=== PATIENT | male | born 1960 | race Caucasian/White ===

== ENCOUNTER 2018-04-16 17:50 | Emergency (ER) | payer BC, OTHER ==
[2018-04-16 18:18] LABS: Absolute Lymphocytes (CBC) 0.9 K/uL (0.7-4.9); Absolute Monocytes 0.8 K/uL (0.1-1.3); Absolute Neutrophil 7.7 K/uL (1.8-8.0); Basophils % 0.4 % (0-1.3); Eosinophils % 2.6 % (0-4.4); Hematocrit 42.2 % (39.6-49.0); Lymphocytes % 9.1 % (15.3-44.8); MCH 27.7 pg (27.0-35.0); MCV 86.3 fL (80-100); MPV 7.7 fL (7.6-11.3); RBC Red Blood Cell Count 4.89 M/uL (4.33-5.43)
[2018-04-16 18:32] LABS: Potassium 3.7 mmol/L (3.5-5.1)
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
[2018-04-16] MEDS ORDERED: MORPHINE 4 MG/ML SYR ONE (19:55)
[2018-04-16 20:37] LABS: Urine Blood 1+ (NEG); Urine Glucose NEGATIVE (NEG); Urine Protein 1+ (NEG); Urine Specific Gravity >1.030 (1.005-1.030); Urine pH 5.5 (5.0-7.0)
[2018-04-16 20:38] VITALS: TEMP 98
[2018-04-16 20:39] VITALS: BP 130/78; O2SAT 99
== END 2018-04-16 20:30 | disposition short-term general hospital (02) ==
LOC: ER 17:50
DX: S32.810A Multiple fractures of pelvis with stable disruption of pelvic ring, initial encounter for closed fracture (principal); V93.39XA Fall on board unspecified watercraft, initial encounter; Y93.89 Activity, other specified; Y92.9 Unspecified place or not applicable; Z88.0 Allergy status to penicillin
CPT/HCPCS: 36415; 71045; 72170; 74177; 80048; 81003; 85025; 86850; 86900; 86901; 99285; Q9967

== ENCOUNTER 2018-04-20 06:32 | Emergency (ER) | payer BC ==
--- OUTSIDE RECORDS SUMMARY | 2018-04-20 06:34 | XMS REPORT | Clinical Summary ---
:1960 Author Organization [facility] Address [address] [place] [address] Care Team Providers Name Role Phone Asked, No Pcp Primary Care Provider Unavailable Allergies Active Allergy Reactions Severity Noted Date Comments Penicillin G 10/22/2016 Current Medications Prescription Sig. Disp. Refills Start Date End Date Status meloxicam (MOBIC) 15 Take 1 tablet 30 tablet 2 10/22/2016 10/22/2017 mg tablet (15 mg total) by mouth daily. meloxicam (MOBIC) 15 Take 1 tablet 30 tablet 2 11/21/2016 11/21/2017 mg tablet (15 mg total) by mouth daily. Start the Mobic AFTER you finish the Medrol Dose [facility], or Other Ordered Dose Route Frequency Start Date End Date Status Facility Administered Medication methylPREDNISolone acetate 40 mg IM once 12/12/2016 Active (DEPO-MEDROL) injection 40 mgIndications: Shoulder impingement, right Active Problems Problem Noted Date Shoulder strain 11/21/2016 Social History Tobacco Use Types Packs/Day Years Used Date Never Smoker Smokeless Tobacco: Never Used Sex Assigned at Date Recorded Not on file Last Filed Vital Signs Not on file Plan of Treatment Health Maintenance Due Date Last Done Comments COLON CANCER SCREENING 01/06/2008 SHINGRIX VACCINE (#1) 01/06/2008 ZOSTER VACCINE 2018 INFLUENZA VACCINE 05/20/2018 Results Not on fileafter 04/19/2017 Insurance Payer Benefit Plan / Group Subscriber ID Type Phone Address [facility] CHOICE/CHOICE + xxxxxxxxx HMO/PPO Home: [place] PATRICIA y [phone] [id number]
[2018-04-20] MEDS ORDERED: MORPHINE 4 MG/ML SYR ONE (07:23)
[2018-04-20] MEDS ORDERED: KETOROLAC 30 MG/ML INJ ONE (07:24)
[2018-04-20] MEDS ORDERED: ONDANSETRON 4 MG/2 ML VIAL ONE (07:24)
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
[2018-04-20 08:37] VITALS: TEMP 98
[2018-04-20 08:38] VITALS: O2SAT 96
[2018-04-20 08:39] VITALS: BP 109/88
[2018-04-20 09:39] LABS: Urine Blood TRACE (NEG); Urine Glucose NEGATIVE (NEG); Urine Protein 1+ (NEG)
== END 2018-04-20 08:33 | disposition home or self-care (01) ==
LOC: ER 06:32
DX: R33.9 Retention of urine, unspecified (principal); Z88.0 Allergy status to penicillin
CPT/HCPCS: 51702; 81003; 96374; 96375; 99284; J2405

== ENCOUNTER 2018-04-22 11:17 | Emergency (ER) | payer BC ==
--- OUTSIDE RECORDS SUMMARY | 2018-04-22 11:19 | XMS REPORT | Clinical Summary ---
:1960 Author Organization [facility] Address [address] [place] [address] Care Team Providers Name Role Phone Asked, [...] INFLUENZA VACCINE 05/20/2018 Results Not on fileafter 04/21/2017 Insurance Payer Benefit Plan / Group Subscriber ID Type Phone Address [facility] CHOICE/CHOICE + xxxxxxxxx HMO/PPO Home: [place] PATRICIA y [id number] [id number]
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
[2018-04-22] MEDS ORDERED: FENTANYL CITR 100 MCG/2 ML ONE (11:54)
[2018-04-22] MEDS ORDERED: NA CHLORIDE 0.9% 1,000 ML ONE ×2 (11:54→13:19)
[2018-04-22 12:00] LABS: Absolute Lymphocytes (CBC) 0.6 K/uL (0.7-4.9); Absolute Monocytes 0.5 K/uL (0.1-1.3); Basophils % 0.7 % (0-1.3); Eosinophils % 3.2 % (0-4.4); Hematocrit 37.8 % (39.6-49.0); Lymphocytes % 11.5 % (15.3-44.8); MCH 28.7 pg (27.0-35.0); MCV 84.9 fL (80-100); MPV 7.4 fL (7.6-11.3); Monocytes % 9.5 % (3.3-12.3); RBC Red Blood Cell Count 4.46 M/uL (4.33-5.43)
[2018-04-22 12:06] LABS: Potassium 4.2 mmol/L (3.5-5.1)
--- NOTE | 2018-04-22 14:28 | ER ---
Nurse's Notes [facility] Name: Jose Pennington Age: 58 yrs Sex: Male : 1960 Arrival Date: 04/22/2018 Time: 11:20 Bed 14 Private MD: None, None Diagnosis: Volume depletion;Encounter for fitting and adjustment of non-vascular catheter-ramey Presentation: 04/22 11:22 Presenting complaint: Patient states: Needs catheter removed. Ramey was placed here sv about 48 hours ago. Transition of care: patient was not received from another setting of care. Onset of symptoms was April 20, 2018. Care prior to arrival: None. 11:22 Method Of Arrival: Wheelchair sv 11:22 Acuity: CLEO 4 sv 11:43 Risk Assessment: Do you want to hurt yourself or someone else? Patient reports no ph desire to harm self or others. Initial Sepsis Screen: Does the patient meet any 2 criteria? No. Patient's initial sepsis screen is negative. Does the patient have a suspected source of infection? No. Patient's initial sepsis screen is negative. Historical: - Allergies: 11:23 PENICILLINS; sv - PMHx: 11:23 Cholelithiasis; sv - PSHx: 11:23 right shoulder; right inguinal hernia repair; sv - Immunization history:: Adult Immunizations up to date. - Social history:: Smoking status: Patient/guardian denies using tobacco. - Ebola Screening: : No symptoms or risks identified at this time. Screenin:43 Abuse screen: Denies threats or abuse. Denies injuries from another. Nutritional ph screening: No deficits noted. Tuberculosis screening: No symptoms or risk factors identified. Fall Risk None identified. Assessment: 12:00 General: Appears in no apparent distress. comfortable, slender, well groomed, Behavior ph is calm, cooperative, appropriate for age, Denies fever, feeling ill. Pain: Complains of pain in left gluteus paulette Pain currently is 6 out of 10 on a pain scale. Neuro: Level of Consciousness is awake, alert, obeys commands, Oriented to person, place, time, situation. Cardiovascular: Capillary refill < 3 seconds Patient's skin is warm and dry. Respiratory: Airway is patent Respiratory effort is even, unlabored, Respiratory pattern is regular, symmetrical. GI: No signs and/or symptoms were reported involving the gastrointestinal system. : Ramey in place to gravity drainage Urine is clear, approx 250 mL noted in drainage bag, pt reports decreased urination since last night. Derm: Skin is intact, is healthy with good turgor, Skin is pink, warm \T\ dry. Musculoskeletal: Circulation, motion, and sensation intact. Range of motion: intact in all extremities. 13:00 Reassessment: Patient appears in no apparent distress at this time. No changes from previously documented assessment. Patient and/or family updated on plan of care and expected duration. Pain level reassessed. Patient is alert, oriented x 3, equal unlabored respirations, skin warm/dry/pink. 13:57 Reassessment: Patient appears in no apparent distress at this time. Patient and/or ph family updated on plan of care and expected duration. Pain level reassessed. Patient is alert, oriented x 3, equal unlabored respirations, skin warm/dry/pink. Pt assisted to restroom for BM, now lying in bed w/ head elevated, c/o pain in L hip/buttocks r/t recent injury, ERP notified and additional pain medication administered, Ramey bag emptied, 325 mL output noted. Vital Signs: 11:23 BP 110 / 74; Pulse 77; Resp 18; Pulse Ox 95% ; Weight 99.79 kg; Height 6 ft. 2 in. sv (187.96 cm); 12:32 BP 121 / 72; Pulse 65; Resp 18; Pulse Ox 98% on R/A; Pain 4/10; ph 13:56 BP 111 / 64; Pulse 48; Resp 18; Pulse Ox 98% on R/A; ph 15:00 BP 115 / 76; Pulse 52; Resp 18; Temp 98.0; Pulse Ox 99% on R/A; ph 11:23 Body Mass Index 28.25 (99.79 kg, 187.96 cm) sv ED Course: 11:20 Patient arrived in ED. sb2 11:21 None, None is Private Physician. sb2 11:23 Triage completed. sv 11:23 Arm band placed on right wrist. sv 11:26 Jessica Amador, ANIL is Primary Nurse. ph 11:27 Oliva Jacobson FNP-C [facility]. snw 11:27 Eulogio Lu MD is Attending Physician. snw 12:03 Initial lab(s) drawn, by ED staff, sent to lab. Inserted saline lock: 20 gauge in right ph antecubital area, using aseptic technique. Blood collected. 12:04 Patient has correct armband on for positive identification. Bed in low position. Call ph light in reach. Side rails up X 1. Pulse ox on. NIBP on. Warm blanket given. 12:33 No provider procedures requiring assistance completed. ph 15:14 IV discontinued, intact, bleeding controlled, No redness/swelling at site. Pressure ph dressing applied. Administered Medications: 11:59 Drug: NS 0.9% 1000 ml Route: IV; Rate: 1 bolus; Site: right antecubital; ph 11:59 Drug: fentaNYL (PF) 50 mcg Route: IVP; Site: right antecubital; ph 13:55 Drug: NS 0.9% 1000 ml Route: IV; Rate: 1 bolus; Site: right antecubital; ph 13:55 Drug: fentaNYL (PF) 50 mcg Route: IVP; Site: right antecubital; ph Outcome: 14:27 Discharge ordered by MD. willoughby 15:14 Patient left the ED. ph 15:14 Discharged to home via wheelchair, with family. ph 15:14 Condition: good 15:14 Discharge instructions given to patient, family, Instructed on discharge instructions, follow up and referral plans. catheter care Demonstrated understanding of instructions, follow-up care, catheter care Signatures: Bella Rosales, RN RN Oliva Jacobson, BARIATRIC COORDINATOR-C BARIATRIC COORDINATOR-Csnw Jessica Amador RN RN Missy Caldera sb2 Corrections: (The following items were deleted from the chart) 13:57 12:32 BP 121 / 72; Pulse 71bpm; Resp 18bpm; Pulse Ox 98% RA; Pain 4/10; ph ph
--- NOTE | 2018-04-22 14:28 | EDPHYS ---
Physician Documentation [facility] Name: Jose Pennington Age: 58 yrs Sex: Male : 1960 Arrival Date: 04/22/2018 Time: 11:20 Bed 14 Private MD: None, None ED Physician Eulogio Lu HPI: 04/22 11:45 This 58 yrs old Male presents to ER via Wheelchair with complaints of snw Catheter Removal. 11:45 Onset: The symptoms/episode began/occurred 48 hour(s) ago, here to have ramey removed. snw Associated signs and symptoms: Pertinent positives: requests cath removal s/p insertion for urinary retention. The patient has not experienced similar symptoms in the past. transferred to [place] and released with pain medications. Pt here 48h ago for ramey placement 2nd to urinary retention. Historical: - Allergies: 11:23 PENICILLINS; sv - PMHx: 11:23 Cholelithiasis; sv - PSHx: 11:23 right shoulder; right inguinal hernia repair; sv - Immunization history:: Adult Immunizations up to date. - Social history:: Smoking status: Patient/guardian denies using tobacco. - Ebola Screening: : No symptoms or risks identified at this time. ROS: 11:42 Constitutional: Negative for fever, chills, and weight loss, Eyes: Negative for injury, snw pain, redness, and discharge, ENT: Negative for injury, pain, and discharge, Neck: Negative for injury, pain, and swelling, Cardiovascular: Negative for chest pain, palpitations, and edema, Respiratory: Negative for shortness of breath, cough, wheezing, and pleuritic chest pain, Abdomen/GI: Negative for abdominal pain, nausea, vomiting, diarrhea, and constipation, Back: Negative for injury and pain, : Negative for bleeding, discharge, and swelling, + request for catheter removal Skin: Negative for injury, rash, and discoloration, Neuro: Negative for headache, weakness, numbness, tingling, and seizure, Psych: Negative for depression, anxiety, suicide ideation, homicidal ideation, and hallucinations. 11:42 MS/extremity: Positive for injury or acute deformity, recent pelvic fracture. Exam: 11:40 Constitutional: This is a well developed, well nourished patient who is awake, alert, snw and in no acute distress. Head/Face: Normocephalic, atraumatic. Eyes: Pupils equal round and reactive to light, extra-ocular motions intact. Lids and lashes normal. Conjunctiva and sclera are non-icteric and not injected. Cornea within normal limits. Periorbital areas with no swelling, redness, or edema. ENT: Nares patent. No nasal discharge, no septal abnormalities noted. Tympanic membranes are normal and external auditory canals are clear. Oropharynx with no redness, swelling, or masses, exudates, or evidence of obstruction, uvula midline. Mucous membranes moist. Neck: Trachea midline, no thyromegaly or masses palpated, and no cervical lymphadenopathy. Supple, full range of motion without nuchal rigidity, or vertebral point tenderness. No Meningismus. Chest/axilla: Normal chest wall appearance and motion. Nontender with no deformity. No lesions are appreciated. Cardiovascular: Regular rate and rhythm with a normal S1 and S2. No gallops, murmurs, or rubs. Normal PMI, no JVD. No pulse deficits. Respiratory: Lungs have equal breath sounds bilaterally, clear to auscultation and percussion. No rales, rhonchi or wheezes noted. No increased work of breathing, no retractions or nasal flaring. Abdomen/GI: Soft, non-tender, with normal bowel sounds. No distension or tympany. No guarding or rebound. No evidence of tenderness throughout. Back: No spinal tenderness. No costovertebral tenderness. Full range of motion. Skin: Warm, dry with normal turgor. Normal color with no rashes, no lesions, and no evidence of cellulitis. MS/ Extremity: Pulses equal, no cyanosis. Neurovascular intact. Full, normal range of motion. + pelvic fractures, tenderness with position change, taking meds at home but no relief at night Neuro: Awake and alert, GCS 15, oriented to person, place, time, and situation. Cranial nerves II-XII grossly intact. Motor strength 5/5 in all extremities. Sensory grossly intact. Cerebellar exam normal. Normal gait. Psych: Awake, alert, with orientation to person, place and time. Behavior, mood, and affect are within normal limits. Vital Signs: 11:23 BP 110 / 74; Pulse 77; Resp 18; Pulse Ox 95% ; Weight 99.79 kg; Height 6 ft. 2 in. sv (187.96 cm); 12:32 BP 121 / 72; Pulse 65; Resp 18; Pulse Ox 98% on R/A; Pain 4/10; ph 13:56 BP 111 / 64; Pulse 48; Resp 18; Pulse Ox 98% on R/A; ph 15:00 BP 115 / 76; Pulse 52; Resp 18; Temp 98.0; Pulse Ox 99% on R/A; ph 11:23 Body Mass Index 28.25 (99.79 kg, 187.96 cm) sv MDM: 11:28 Patient medically screened. snw 14:30 Data reviewed: vital signs, nurses notes. Data interpreted: Pulse oximetry: on room air snw is 98 %. Interpretation: normal. Counseling: I had a detailed discussion with the patient and/or guardian regarding: the historical points, exam findings, and any diagnostic results supporting the discharge/admit diagnosis, the need for outpatient follow up, to return to the emergency department if symptoms worsen or persist or if there are any questions or concerns that arise at home. Awaiting: pt rec'ing 2nd L IVF for dark urine, low output. Request ramey placed 48 hours ago for retention s/p pelvic fx be removed. Discussed with continued pain medications the ramey would have to be replaced should the pt not be able to void. Recommend an additional 2 days for ramey re-evaluation. Pt states he had clear output yesterday but minimal and dark urine today. . 04/22 11:39 Order name: CBC with Diff; Complete Time: 12:12 snw 04/22 11:39 Order name: Chem 7; Complete Time: 12:12 snw 04/22 11:39 Order name: Bladder Scanner; Complete Time: 11:49 snw Administered Medications: 11:59 Drug: NS 0.9% 1000 ml Route: IV; Rate: 1 bolus; Site: right antecubital; ph 11:59 Drug: fentaNYL (PF) 50 mcg Route: IVP; Site: right antecubital; ph 13:55 Drug: NS 0.9% 1000 ml Route: IV; Rate: 1 bolus; Site: right antecubital; ph 13:55 Drug: fentaNYL (PF) 50 mcg Route: IVP; Site: right antecubital; ph Disposition: 17:15 Co-signature as Attending Physician, Eulogio Lu MD. rn Disposition: 04/22/18 14:27 Discharged to Home. Impression: Volume depletion, Encounter for fitting and adjustment of non-vascular catheter - ramey. - Condition is Stable. - Discharge Instructions: Dehydration, Adult, Ramey Catheter Care, Adult, Urinary Retention, Acute, Male, Pelvic Pain, Male, Rehydration, Adult. - Work release form, Medication Reconciliation Form, Thank You Letter, Antibiotic Education, Prescription Opioid Use form. - Follow up: Private Physician; When: 48 Hours; Reason: Recheck today's complaints, Continuance of care, Re-evaluation by your physician. Signatures: Dispatcher [employer] EDBella Santoyo RN RN Oliva Gallego, STAMPING MILL TENDER-C STAMPING MILL TENDER-Csnw Eulogio Lu MD MD rn Hall, Patricia, RN RN ph Corrections: (The following items were deleted from the chart) 15:14 14:27 04/22/2018 14:27 Discharged to Home. Impression: Volume depletion; Encounter for ph fitting and adjustment of non-vascular catheter - ramey. Condition is Stable. Forms are Medication Reconciliation Form, Thank You Letter, Antibiotic Education, Prescription Opioid Use. Follow up: Private Physician; When: 48 Hours; Reason: Recheck today's complaints, Continuance of care, Re-evaluation by your physician. snw
[2018-04-22 15:19] VITALS: O2SAT 98
[2018-04-22 15:20] VITALS: BP 111/64
== END 2018-04-22 15:14 | disposition home or self-care (01) ==
LOC: ER 11:17
DX: E86.9 Volume depletion, unspecified (principal); Z46.6 Encounter for fitting and adjustment of urinary device; Z88.0 Allergy status to penicillin
CPT/HCPCS: 36415; 80048; 85025; 96374; 99284; J3010; J7030

== ENCOUNTER 2018-04-24 08:53 | Emergency (ER) | payer BC ==
--- OUTSIDE RECORDS SUMMARY | 2018-04-24 08:56 | XMS REPORT | Clinical Summary ---
:1960 Author Organization [facility] Address [address] [place] [address] Care Team Providers Name Role Phone Asked, [...] INFLUENZA VACCINE 05/20/2018 Results Not on fileafter 04/23/2017 Insurance Payer Benefit Plan / Group Subscriber ID Type Phone Address [facility] CHOICE/CHOICE + xxxxxxxxx HMO/PPO Home: C[place]ri[place] PATRICIA y [id number] [id number]
--- OUTSIDE RECORDS SUMMARY | 2018-04-24 08:57 | XMS REPORT | Continuity of Care Document ---
:1960 Author Organization Interface Problems Problem Status Onset Classification Date Comments Source Date Reported ACUTE PELVIC FX Active [address] PELVIC FX Active [address] FRACTURE OF Active [facility] UNSP PARTS OF [facility] LUMBOSACRAL SP Center Medications Medication Details Route Status Patient Ordering Order Source Instructions Provider Date naproxen 500 mg 500 mg=1 tab, Active 04/19[facility] [place] oral tablet PO, Q12H, PRN 2018 Medical Pain Score 4-6, Center # 40 tab, 0 Refill(s), Pharmacy: [facility] gabapentin 300 300 mg=1 cap, Active 04/19[facility] [place] MG Oral Capsule PO, Q8H, # 60 2018 Medical cap, 0 Center Refill(s), Pharmacy: [facility] Docusate Sodium 100 mg=1 cap, Active 04/19[facility] [place] 100 MG Oral PO, BID, # 30 2018 Medical Capsule cap, 0 Center Refill(s), Pharmacy: [facility] acetaminophen 1,000 mg=2 tab, Active 04/19[facility] [place] 500 mg oral PO, Q6H, # 50 2018 Medical tablet tab, 0 Center Refill(s), Pharmacy: [facility] 0.4 ML 40 mg, SUB-Q, Active 04/19[facility] Enoxaparin Daily, # 42 syr, 2018 Medical sodium 100 0 Refill(s) Center MG/ML Prefilled Syringe [Lovenox] 0.4 ML 40 mg, SUB-Q, Inactive 04/19[facility] Enoxaparin Daily, # 21 syr, 2018 Medical sodium 100 0 Refill(s) Center MG/ML Prefilled Syringe [Lovenox] acetaminophen 1,000 mg=2 tab, Inactive 04/19[facility] [place] 500 mg oral PO, Q6H, # 40 2018 Medical tablet tab, 0 Refill(s) Center tramadol 50 mg=1 tab, PO, Active 04/19[facility] [place] hydrochloride Q6H, # 50 tab, 0 2018 Medical 50 MG Oral Refill(s) Center Tablet naproxen 500 mg 500 mg=1 tab, Inactive [facility] oral tablet PO, Q12H, PRN 2018 Medical Pain Score 4-6, Center # 40 tab, 0 Refill(s) gabapentin 300 300 mg=1 cap, Inactive [place] MG Oral Capsule PO, Q8H, # 60 2018 Medical cap, 0 Refill(s) Center Docusate Sodium 100 mg=1 cap, Inactive [place] 100 MG Oral PO, BID, # 30 2018 Medical Capsule cap, 0 Refill(s) Center Naproxen 500 mg, 1 tab, Inactive [facility] Route: PO, Drug 2018 Medical form: TAB, Q12H, Center Dosing Weight 104.545, kg, Start date: 04/19/18 9:00:00 CDT, Duration: 30 day, Stop date: 05/18/18 21:00:00 CDTNotes: (Same as: Naprosyn) Take with food. gabapentin 300 mg, 1 cap, Inactive [facility] Route: PO, Drug 2017 Medical form: CAP, Q8H, Center Dosing Weight 104.545, kg, Start date: 04/19/18 8:00:00 CDT, Duration: 30 day, Stop date: 05/19/18 0:00:00 CDTNotes: (Same as: Neurontin) Atropine 1 tab, Route: No Longer [facility] Sulfate 0.025 PO, Drug Form: Active 2018 Medical MG / TAB, Dosing Center Diphenoxylate Weight 104.545, Hydrochloride kg, QID, PRN 2.5 MG Oral Loose Stools, Tablet Start date: [Lomotil] 04/18/18 10:38:00 CDT, Duration: 30 day, Stop date: 05/18/18 10:37:00 CDTNotes: (Same As: Lomotil) MAX Adult dose=8 tabs/day Simethicone 80 mg, 1 tab, No Longer [facility] Route: CHEW, Active 2018 Medical Drug form: Center CHEWTAB, TID, Dosing Weight 104.545, kg, PRN Gas, Start date: 04/17/18 23:32:00 CDT, Duration: 30 day, Stop date: 05/17/18 23:31:00 CDTNotes: (Same as: Mylicon) sennosides, LONG-TERM 8.6 mg, 1 tab, No Longer [place] [...] Miralax 17 gm, 1 pkt, No Longer [place] Route: PO, Drug Active 2017 Medical form: PWDR, Center Daily, Dosing Weight 104.545, kg, Start date: 04/17/18 9:00:00 CDT, Duration: 30 day, Stop date: 05/16/18 9:00:00 CDTNotes: Dissolve in 8 oz of water or juice. (Same as: Miralax) celecoxib 200 mg, 1 cap, No Longer [place] Route: PO, Drug Active 2017 Medical form: CAP, Q12H, Center Dosing Weight 104.545, kg, For patients LESS than 75 years old. Hold in all patients if CrCl Notes: NSAID. Please check indication. Not for seizure. (Same As: CeleBREX) Acetaminophen 1,000 mg, 2 tab, No Longer [place] Route: PO, Drug Active 2017 Medical form: TAB, Q6H, Center Dosing Weight 104.545, kg, Start date: 04/17/18 6:00:00 CDT, Duration: 30 day, Stop date: 05/17/18 0:00:00 CDTNotes: Max acetaminophen 4000 mg/day (4 gm/day). (Same as: Tylenol Extra Strength) Hydromorphone 1 mg, 0.5 mL, Inactive [place] Route: IVP, Drug 2017 Medical form: INJ, ONCE, Center Dosing Weight 104.545, kg, Priority: STAT, Start date: 04/17/18 5:16:00 CDT, Stop date: 04/17/18 5:16:00 CDTNotes: Same as Dilaudid Lidocaine 1 patch, Route: No Longer [place] Hydrochloride TOP, Q24H, Drug Active 2017 Medical [...] Enoxaparin 30 mg, 0.3 mL, No Longer [place] Route: SUB-Q, Active 2017 Medical Drug form: INJ, Center [id number], Dosing Weight 104.545, kg, Start date: 04/17/18 4:00:00 CDT, Duration: 30 day, Stop date: 05/16/18 16:00:00 CDTNotes: (Same as: Lovenox) Hydromorphone 1 mg, Route: Inactive [facility] IVP, ONCE, 2018 Medical Dosing Weight Center 104.545, kg, Priority: STAT, Start date: 04/17/18 3:06:00 CDT, Stop date: 04/17/18 3:06:00 CDT pregabalin 100 mg, 1 cap, No Longer [place] Route: PO, Drug Active 2017 Medical form: CAP, Q8H, Center Dosing Weight 104.545, kg, Priority: NOW, Start date: 04/17/18 3:04:00 CDT, Duration: 48 hr, Stop date: 04/19/18 0:00:00 CDTNotes: (Same as: Lyrica) Ketorolac 30 mg, 1 mL, Inactive [facility] Route: IVP, Drug 2017 Medical form: INJ, [...] Tramadol 100 mg, 2 tab, No Longer [place] Route: PO, Drug Active 2017 Medical form: TAB, Q6H, Center Dosing Weight 104.545, kg, Priority: NOW, Start date: 04/17/18 3:04:00 CDT, Duration: 30 day, Stop date: 05/17/18 0:00:00 CDTNotes: Not to exceed 400mg/day. (Same As: Ultram) Nicardipine 20 mg, 200 mL, Inactive [facility] Rate: Titrate, 2018 Medical Start Dose: 5 Center mg/hr, Titration: 2.5 mg/hr every 15 minutes, Goal(s): SBP Notes: Same as: Cardene Concentration: (0.1 mg/ 1 ml) Hydromorphone 1 mg, 0.5 mL, Inactive [place] Route: IVP, Drug 2017 Medical form: INJ, ONCE, Center Dosing Weight 104.545, kg, Priority: STAT, Start date: 04/17/18 0:23:00 CDT, Stop date: 04/17/18 0:23:00 CDTNotes: Same as Dilaudid Iohexol 100 mL, Route: No Longer [place] IVP, Drug Form: Active 2018 Medical SOLN, Dosing Center Weight 104.545, kg, ONCALL, STAT, Start date: 04/17/18 0:07:00 CDT, Duration: 1 doses or times, Stop date: 04/18/18 0:00:00 CDT, Dose=2.2ml/kg, Max drcz=597ol -- "To be infused by Radiology Staff ONLY"Notes: (same as:Omnipaque 350). WASTE: F/P - Black; E - [employer]ash [employer] Hydromorphone 1 mg, 0.5 mL, No Longer [place] Route: IVP, Drug Active 2017 Medical form: INJ, ONCE, Center Dosing Weight 104.545, kg, Priority: STAT, Start date: 04/16/18 23:47:00 CDT, Stop date: 04/16/18 23:47:00 CDTNotes: Same as Dilaudid Morphine 4 mg, 1 mL, Inactive [facility] Route: IVP, Drug 2017 Medical form: SOLN, Center ONCE, Dosing Weight 104.545, kg, Start date: 04/16/18 22:52:00 CDT, Stop date: 04/16/18 22:52:00 CDTNotes: (Same as:MORPhine Sulfate) Zofran 4 mg, 2 mL, Inactive [facility] Route: IVP, Drug 2017 Medical form: INJ, ONCE, Center Dosing Weight 104.545, kg, Start date: 04/16/18 22:00:00 CDT, Stop date: 04/16/18 22:00:00 CDTNotes: (Same as: Zofran) MEDICATION WASTE Product Size: 4 mg Product Wasted: _0__ mg Morphine 4 mg, 1 mL, Inactive [facility] Route: IVP, Drug 2017 Medical form: SOLN, Center ONCE, Dosing Weight 104.545, kg, Start date: 04/16/18 22:00:00 CDT, Stop date: 04/16/18 22:00:00 CDTNotes: (Same as:MORPhine Sulfate) Saline Flush 10 mL, Route: No Longer [facility] 0.9% IVP, Drug Form: Active 2018 Medical INJ, Dosing Center Weight 104.545, kg, PRN, PRN Line Flush, Start date: 04/16/18 21:40:00 CDT, Duration: 30 day, Stop date: 05/16/18 21:39:00 CDTNotes: Same as: BD Posiflush Sterile Allergies, Adverse Reactions, Alerts Substance Category Reaction Severity Reaction Status Date Comments Source type Reported penicillins Assertion Drug Active [facility] Immunizations Immunization Date Given Site Status Last Updated Comments Source Results Order Name Results Value Reference Date Interpretation Comments Source Range Pelvis 3 Pelvis 3 EXAM: XR PELVIS 3 VIEWS 04/18 - [facility] views DX views - [facility] DATE: 04/18/2018 1:30 PM CDT Read by: [...] ELECTROLYTE AGAP 14.8 meq/L 10.0 - 04/18 [facility] 20.0 [facility] ELECTROLYTE eGFR 61 04/18 Result Comment: The eGFR is calculated using the CKD-EPI formula. In most young, healthy individuals the eGFR will be >90 mL/ min/1.73m2. The eGFR declines with age. An eGFR of 60-89 may be normal in [facility] mL/min/1.7 some populations, particularly the elderly, for whom the CKD-EPI formula has not been extensively validated. Use of the eGFR is not recommended in the following populations: [address] Individuals with unstable creatinine concentrations, including [...] Lvl 74 mg/dL 70 - 99 04/[address] ELECTROLYTE BUN 18 mg/dL 7 - 22 04/[address] ELECTROLYTE Chloride Lvl 104 meq/L 95 - 109 04/[address] ELECTROLYTE CO2 26 meq/L 24 - 32 04/[address] ELECTROLYTE Potassium Lvl 3.8 meq/L 3.5 - 5.1 04/[address] ELECTROLYTE Sodium Lvl 141 meq/L 135 - 145 04/[address] ELECTROLYTE Creatinine 1.27 mg/dL 0.50 - 04/18 [facility] Lvl 1.40 [facility] ELECTROLYTE Calcium Lvl 8.6 mg/dL 8.5 - 10.5 04/[address] HEMATOLOGY Platelet 178 K/CMM 133 - 450 04/[address] HEMATOLOGY MPV 7.6 fL 7.4 - 10.4 04/[address] HEMATOLOGY RDW 16.3 % 11.5 - 04/18 [facility] 14.5 [facility] HEMATOLOGY WBC 9.5 K/CMM 3.7 - 10.4 04/[address] HEMATOLOGY Hct 40.9 % 42.0 - 04/18 [facility] 54.0 /2017 [facility] HEMATOLOGY Hgb 13.4 g/dL 14.0 - 04/18 18.0 [facility] HEMATOLOGY RBC 4.71 M/CMM 4.70 - 04/18 6.10 [facility] HEMATOLOGY MCH 28.4 pg 27.0 - 04/18 [facility] 31.0 [facility] HEMATOLOGY MCV 86.9 fL 80.0 - 04/18 94.0 [facility] HEMATOLOGY MCHC 32.7 g/dL 32.0 - 04/18 [facility] 36.0 [facility] HEMATOLOGY Monocytes 11.9 % 2.0 - 12.0 04/18 2017 [facility] HEMATOLOGY Eosinophils 2.9 % 0.0 - 4.0 04/18 2017 [facility] HEMATOLOGY Segs-Bands # 6.9 K/CMM 1.5 - 8.1 04/18 2017 [facility] HEMATOLOGY Basophils 0.3 % 0.0 - 1.0 04/18 2017 [facility] HEMATOLOGY Segs 72.8 % 45.0 - 04/18 [facility] 75.0 [facility] HEMATOLOGY Lymphocytes 12.1 % 20.0 - 04/18 [facility] 40.0 [facility] HEMATOLOGY Lymphocytes # 1.2 K/CMM 1.0 - 5.5 04/[address] HEMATOLOGY Monocytes # 1.1 K/CMM 0.0 - 0.8 04/[address] HEMATOLOGY Eosinophils # 0.3 K/CMM 0.0 - 0.5 04/[address] DRUG SCREEN UDS Note See Note 04/17 [facility] (04/16/18 11:39 PM) [place] DRUG SCREEN U Phencyc Scr Negative Negative 04/17 [facility] *NA* [place] (04/16/18 11:39 PM) DRUG SCREEN U Cannab Scr Negative Negative 04/17 [facility] *NA* Center (04/16/18 11:39 PM) DRUG SCREEN U Amph Scr Negative Negative 04/17 [facility] *NA* Center (04/16/18 11:39 PM) DRUG SCREEN U Franchesca Scr Negative Negative 04/17 [facility] *NA* Center (04/16/18 11:39 PM) DRUG SCREEN U Opiate Scr Positive Negative 04/17 Medical *ABN* Center (04/16/18 11:39 PM) DRUG SCREEN U Cocaine Scr Negative Negative 04/17 [facility] *NA* [place] (04/16/18 11:39 PM) DRUG SCREEN U Benzodia Negative Negative 04/17 [facility] Scr Medical *NA* [place] (04/16/18 11:39 PM) URINE AND UA Sq Epi Occasional Few /LPF 04/17 [place] STOOL /LPF /2017 [facility] URINE AND UA WBC 3-5 /HPF None Seen 04/17 [facility] STOOL /HPF /2017 [facility] URINE AND UA Leuk Est Negative Negative 04/17 [facility] STOOL /2017 [facility] (04/16/18 11:39 PM) [place] URINE AND UA Nitrite Negative Negative 04/17 [facility] STOOL [facility] (04/16/18 11:39 PM) [place] URINE AND UA Bili Negative Negative 04/17 [facility] STOOL [facility] *NA* [place] (04/16/18 11:39 PM) URINE AND UA Ketones 15 mg/dL Negative 04/17 [facility] STOOL mg/dL /2017 [facility] URINE AND UA 0.2 EU/dL 0.1 - 1.0 04/17 [facility] [place] [facility] Urobilinogen /2017 [facility] URINE AND UA Glucose Negative Negative 04/17 [facility] STOOL [facility] (04/16/18 11:39 PM) [place] URINE AND UA pH 5.5 5.0 - 8.0 04/17 [facility] STOOL /2017 [facility] URINE AND UA Turbidity Slight Cloudy Clear 04/17 [facility] STOOL [facility] (04/16/18 11:39 PM) [place] URINE AND UA Spec Grav 1.020 <=1.030 04/17 [facility] STOOL /2017 [facility] URINE AND UA Protein Negative Negative 04/17 [facility] STOOL [facility] (04/16/18 11:39 PM) [place] URINE AND UA Color Yellow Yellow 04/17 [facility] STOOL [facility] *NA* [place] (04/16/18 11:39 PM) URINE AND UA Blood Small Negative 04/17 [facility] STOOL [facility] *ABN* [place] (04/16/18 11:39 PM) BLOOD BANK ABO/Rh A POS 04/17 [facility] RESULTS [facility] BLOOD BANK Antibody Scrn Negative 04/17 [facility] RESULTS [facility] (04/16/18 10:14 PM) Center Pelvis wo Pelvis wo IV EXAM: CT PELVIS WITH 3D WITHOUT CONTRAST 04/17 - [facility] IV contrast/w - Medical contrast/w CT Center [...] abdomen and pelvis performed at [facility] on 04/16/2018. DISCUSSION: Mild pubic symphyseal diastasis [...] Acid 0.8 mMol/L 0.5 - 2.2 04/17 [facility] Lv [facility] CHEM PANEL eGFR 67 04/17 Result Comment: The eGFR is calculated using the CKD-EPI formula. In most young, healthy individuals the eGFR will be >90 mL/ min/1.73m2. The eGFR declines with age. An eGFR of 60-89 may be normal in [facility] mL/min/1. some populations, particularly the elderly, for [...] Lvl 96 mg/dL 70 - 99 04/[address] CHEM PANEL Creatinine 1.18 mg/dL 0.50 - 04/17 [facility] Lvl 1.40 [facility] CHEM PANEL BUN 15 mg/dL 7 - 22 04/[address] CHEM PANEL Calcium Lvl 8.8 mg/dL 8.5 - 10.5 04/[address] CHEM PANEL Sodium Lvl 142 meq/L 135 - 145 04/[address] CHEM PANEL CO2 24 meq/L 24 - 32 04/[address] CHEM PANEL Chloride Lvl 109 meq/L 95 - 109 04/[address] CHEM PANEL Potassium Lvl 3.9 meq/L 3.5 - 5.1 04/[address] CHEM PANEL AGAP 12.9 meq/L 10.0 - 04/17 [facility] 20.0 [facility] HEMATOLOGY Estimated % 1.6 % 0.0 - 7.5 04/17 [facility] Lysis [facility] [address] [place] [address] HEMATOLOGY G-value Rapid 9.3 K d/sc 5.0 - 11.6 04/[address] HEMATOLOGY Max Amplitude 65 mm 52 - 71 04/[address] HEMATOLOGY Angle Rapid 77 degrees 64 - 80 04/[address] HEMATOLOGY K-time Rapid 1.2 min 0.6 - 2.3 04/[address] HEMATOLOGY R-time Rapid 0.5 min 0.4 - 0.7 04/[address] HEMATOLOGY [place] 0.4 min 04/[address] HEMATOLOGY ACT (TEG) 97 s 86 - 118 04/[address] HEMATOLOGY MCV 86.7 fL 80.0 - 04/17 [facility] 94.0 [facility] HEMATOLOGY Hct 42.1 % 42.0 - 04/17 [facility] 54.0 [facility] HEMATOLOGY RDW 16.5 % 11.5 - 04/17 14.5 [facility] HEMATOLOGY MCHC 32.6 g/dL 32.0 - 04/17 36.0 [facility] HEMATOLOGY MCH 28.3 pg 27.0 - 04/17 31.0 [facility] HEMATOLOGY Platelet 195 K/CMM 133 - 450 04/17 2017 [facility] HEMATOLOGY MPV 7.3 fL 7.4 - 10.4 04/17 2017 [facility] HEMATOLOGY WBC 12.1 K/CMM 3.7 - 10.4 04/17 2017 [facility] HEMATOLOGY Hgb 13.8 g/dL 14.0 - 04/17 18.0 [facility] HEMATOLOGY RBC 4.86 M/CMM 4.70 - 04/17 [facility] 6.10 [facility] HEMATOLOGY Segs 86.1 % 45.0 - 04/17 75.0 [facility] HEMATOLOGY Lymphocytes 6.3 % 20.0 - 04/17 [facility] 40.0 [facility] HEMATOLOGY Lymphocytes # 0.8 K/CMM 1.0 - 5.5 04/[address] HEMATOLOGY Monocytes # 0.8 K/CMM 0.0 - 0.8 04/17 [facility]2017 [facility] HEMATOLOGY Eosinophils # 0.1 K/CMM 0.0 - 0.5 04/17 2017 [facility] HEMATOLOGY Eosinophils 0.7 % 0.0 - 4.0 04/[address] HEMATOLOGY Monocytes 6.7 % 2.0 - 12.0 04/17 [facility] HEMATOLOGY Segs-Bands # 10.4 K/CMM 1.5 - 8.1 04/[address] HEMATOLOGY Basophils 0.2 % 0.0 - 1.0 04/[address] Chest w Chest w EXAM: CT CHEST WITH CONTRAST 04/17 - [facility] contrast CT contrast CT /2017 - Medical This report was dictated by a Entry Level Business Analyst/Fellow. I have personally reviewed the images as Center well as the Resident's interpretation and agree with the findings. DATE: 04/17/2018 at 0035 hours Read by: Rhonda Villalobos MD Resident: hRonda Villalobos MD Dictated Date/time: 04/17/18 01:09 Electronically [...] on 04/17/2018 at 0120 hours RECOMMENDATIONS: None. Brain wo Brain wo EXAM: CT HEAD WITHOUT CONTRAST 04/17 [facility] contrast CT contrast CT /2018 - [facility] This report was dictated by a Entry Level Business Analyst/Fellow. I have personally reviewed the images as [...] agreement with previous preliminary report made by patient relations director resident assistant cna. Spine Spine EXAM: CT CERVICAL SPINE WITHOUT CONTRAST 04/17 [facility] cervical wo cervical - Medical contrast CT contrast CT This report was dictated by a Entry Level Business Analyst/Fellow. I have personally reviewed the images as [...] disease at C5-C7 associated with cervical spondylosis. Femur Femur series EXAM: XR LEFT HIP 3 VIEW AND AP PELVIS 04/17 [facility] [place] series DX - Medical EXAM: XR LEFT FEMUR 2 VIEWS This report was dictated by a Entry Level Business Analyst/Fellow. I have personally reviewed the images as [...] tissue swelling. Trace left knee joint effusion. Hip 2/3 Hip 2/3 views EXAM: XR LEFT HIP 3 VIEW AND AP PELVIS 04/17 - [place] views uni w uni w pelvis /2018 - Medical pelvis DX DX EXAM: XR LEFT FEMUR 2 VIEWS This report was dictated by a Entry Level Business Analyst/Fellow. I have personally reviewed the images as [...] VIEWS This report was dictated by a Entry Level Business Analyst/Fellow. I have personally reviewed the images as [...] EXAM: CT ABDOMEN/PELVIS WITH CONTRAST 04/16 - [facility] Consult Consult CT /2018 - Medical CT This report was dictated by a Entry Level Business Analyst/Fellow. I have personally reviewed the images as [...] hematoma adjacent to the pubic symphysis fracture. Pelvis AP Pelvis AP DX EXAM: XR PELVIS 1 VIEW 04/16 [facility] DX /2018 - [facility] This report was dictated by a Entry Level Business Analyst/Fellow. I have personally reviewed the images as Center well as the Resident's interpretation and agree with the findings. DATE: 04/16/2018 9:44 PM CDT Read by: Rhonda Villalobos MD Resident: Rhonda Villalobos MD Dictated Date/time: 04/16/18 21:51 Electronically Signed by: Adi Gu MD 04/16/18 22:21 FINAL REPORT INDICATION: trauma - [facility] SECTION: ER COMPARISON: None. TECHNIQUE: Frontal pelvis FINDINGS: No acute fracture or malalignment is identified. Contrast is seen within the bladder. No soft tissue abnormality is identified. IMPRESSION: No acute abnormality. Chest 1view Chest 1view EXAM: XR CHEST 1 VIEW 04/16 - [facility] DX - Medical This report was dictated by a Entry Level Business Analyst/Fellow. I have personally reviewed the images as Center well as the Resident's interpretation and agree with the findings. DATE: 04/16/2018 9:44 PM CDT Read by: Rhonda Villalobos MD Resident: Rhonda Villalobos MD Dictated Date/time: 04/16/18 21:52 Electronically Signed by: Adi Gu MD 04/16/18 22:23 FINAL REPORT INDICATION: trauma - custodial COMPARISON: None. [place] SECTION: ER TECHNIQUE: AP chest FINDINGS: Lines, tubes and hardware: None. Lungs and pleura: No pulmonary or pleural based abnormality is identified. Pulmonary vascularity is normal. Heart and mediastinum: The heart size is normal for technique. The mediastinal contours are normal. Bones: No acute bony abnormality is identified. IMPRESSION: No acute cardiopulmonary abnormality. Vital Signs Vital Sign Value Date Comments Source Systolic (mm Hg) 122 04/19/2018 [facility] Diastolic (mm Hg) 83 04/19/2018 [facility] Temperature Oral (F) 98.6 F 04/19/2018 [facility] Respitory Rate 18 04/19/2018 [facility] Heart Rate 67 04/19/2018 [facility] Heart Rate 74 04/19/2018 [facility] Respitory Rate 18 04/19/2018 [facility] Systolic (mm Hg) 137 04/19/2018 [facility] Diastolic (mm Hg) 80 04/19/2018 [facility] Temperature Oral (F) 99.1 F 04/19/2018 [facility] Heart Rate 73 04/19/2018 [facility] Temperature Oral (F) 98.1 F 04/19/2018 [facility] Respitory Rate 18 04/19/2018 [facility] Systolic (mm Hg) 114 04/19/2018 [facility] Diastolic (mm Hg) 74 04/19/2018 [facility] Height 187.96 cm 04/17/2018 [facility] Weight 104.545 04/17/2018 [facility] BMI Calculated 29.59 04/17/2018 [facility] Encounters Location Location Encounter Encounter Reason Attending ADM DC Status Source Details Type Number For Provider Date Date Visit [facility] Inpatient [id number] Curtis Purdy 04/17 04/19 NEAL Joaquin /2017 [facility] Procedures Procedure Code Date Perfomer Comments Source
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
--- NOTE | 2018-04-24 11:08 | EDPHYS ---
Physician Documentation [facility] Name: Jose Pennington Age: 58 yrs Sex: Male : 1960 Arrival Date: 04/24/2018 Time: 08:56 Bed 19 Private MD: None, None ED Physician Eulogio Lu HPI: 04/24 10:43 This 58 yrs old Male presents to ER via Wheelchair with complaints of Problem snw With Urinary Catheter. 10:43 The patient presents with ramey removal. Onset: The symptoms/episode began/occurred snw gradually. Associated signs and symptoms: The patient has no apparent associated signs or symptoms. Severity of symptoms: At their worst the symptoms were moderate. The patient has not experienced similar symptoms in the past. The patient has been recently seen at the [facility] Emergency Department, for similar complaints the patient was told to return for a recheck. Historical: - Allergies: 09:13 PENICILLINS; iw - Home Meds: 09:13 Lamictal Oral [Active]; hj - PMHx: 09:13 Cholelithiasis; iw - PSHx: 09:13 right shoulder; right inguinal hernia repair; iw - Immunization history:: Adult Immunizations not up to date. - Social history:: Smoking status: Patient/guardian denies using tobacco. - Ebola Screening: : Patient negative for fever greater than or equal to 101.5 degrees Fahrenheit, and additional compatible Ebola Virus Disease symptoms Patient denies exposure to infectious person Patient denies travel to an Ebola-affected area in the 21 days before illness onset No symptoms or risks identified at this time. ROS: 10:38 Constitutional: Negative for fever, chills, and weight loss, Eyes: Negative for injury, snw pain, redness, and discharge, ENT: Negative for injury, pain, and discharge, Neck: Negative for injury, pain, and swelling, Cardiovascular: Negative for chest pain, palpitations, and edema, Respiratory: Negative for shortness of breath, cough, wheezing, and pleuritic chest pain, Abdomen/GI: Negative for abdominal pain, nausea, vomiting, diarrhea, and constipation, Back: Negative for injury and pain, MS/Extremity: Negative for injury and deformity, Skin: Negative for injury, rash, and discoloration, Neuro: Negative for headache, weakness, numbness, tingling, and seizure. 10:38 : Positive for injury or acute deformity, request ramey removal. Exam: 10:38 Constitutional: This is a well developed, well nourished patient who is awake, alert, snw and in no acute distress. Head/Face: Normocephalic, atraumatic. Eyes: Pupils equal round and reactive to light, extra-ocular motions intact. Lids and lashes normal. Conjunctiva and sclera are non-icteric and not injected. Cornea within normal limits. Periorbital areas with no swelling, redness, or edema. ENT: Nares patent. No nasal discharge, no septal abnormalities noted. Tympanic membranes are normal and external auditory canals are clear. Oropharynx with no redness, swelling, or masses, exudates, or evidence of obstruction, uvula midline. Mucous membranes moist. Neck: Trachea midline, no thyromegaly or masses palpated, and no cervical lymphadenopathy. Supple, full range of motion without nuchal rigidity, or vertebral point tenderness. No Meningismus. Chest/axilla: Normal chest wall appearance and motion. Nontender with no deformity. No lesions are appreciated. Cardiovascular: Regular rate and rhythm with a normal S1 and S2. No gallops, murmurs, or rubs. Normal PMI, no JVD. No pulse deficits. Respiratory: Lungs have equal breath sounds bilaterally, clear to auscultation and percussion. No rales, rhonchi or wheezes noted. No increased work of breathing, no retractions or nasal flaring. Abdomen/GI: Soft, non-tender, with normal bowel sounds. No distension or tympany. No guarding or rebound. No evidence of tenderness throughout. Back: No spinal tenderness. No costovertebral tenderness. Full range of motion. Male : Ecchymotic genitalia with no discharge or lesions. Ramey in place, removed on exam. Pt tolerated well Skin: Warm, dry with normal turgor. Normal color with no rashes, no lesions, and no evidence of cellulitis. MS/ Extremity: Pulses equal, no cyanosis. Neurovascular intact. Full, normal range of motion with tenderness to left hip/pelvis Neuro: Awake and alert, GCS 15, oriented to person, place, time, and situation. Cranial nerves II-XII grossly intact. Motor strength 5/5 in all extremities. Sensory grossly intact. Cerebellar exam normal. Normal gait. Vital Signs: 09:13 BP 135 / 75; Pulse 69; Resp 18 S; Temp 98.0; Pulse Ox 97% on R/A; Weight 99.79 kg; iw Height 6 ft. 2 in. (187.96 cm); Pain 5/10; 10:45 BP 135 / 72; Pulse 70; Resp 18; Pulse Ox 100% on R/A; hj 09:13 Body Mass Index 28.25 (99.79 kg, 187.96 cm) iw MDM: 09:22 Patient medically screened. snw 11:08 Data reviewed: vital signs, nurses notes. Data interpreted: Pulse oximetry: on room air snw is 100 %. Interpretation: normal. Counseling: I had a detailed discussion with the patient and/or guardian regarding: the historical points, exam findings, and any diagnostic results supporting the discharge/admit diagnosis, the need for outpatient follow up, to return to the emergency department if symptoms worsen or persist or if there are any questions or concerns that arise at home. Special discussion: Based on the history and exam findings, there is no indication for further emergent testing or inpatient evaluation. I discussed with the patient/guardian the need to see the primary care provider for further evaluation of the symptoms. I discussed with the patient/guardian the need to see the urologist for further evaluation of the symptoms. 04/24 10:11 Order name: PO challenge; Complete Time: 10:16 snw 04/24 10:12 Order name: Misc. Order: needs to void; Complete Time: 10:59 snw Administered Medications: No medications were administered Disposition: 15:26 Co-signature as Attending Physician, Eulogio Lu MD. rn Disposition: 04/24/18 11:07 Discharged to Home. Impression: Encounter for screening, unspecified. - Condition is Stable. - Discharge Instructions: Urinary Retention, Acute, Male. - Medication Reconciliation Form, Thank You Letter, Antibiotic Education, Prescription Opioid Use form. - Follow up: Private Physician; When: 2 - 3 days; Reason: Recheck today's complaints, Continuance of care, Re-evaluation by your physician. Follow up: Emergency Department; When: As needed; Reason: Worsening of condition. Signatures: Oliva Jacobson, BYRON-C LEASE BUYER-Csnw Jimmie, Lori, RN RN iw LuEulogio mehta MD MD rn Joaquin, Henry, RN RN hj Baxter, Heather, RN RN hb Corrections: (The following items were deleted from the chart) 11:14 11:07 04/24/2018 11:07 Discharged to Home. Impression: Encounter for screening, hb unspecified. Condition is Stable. Discharge Instructions: Urinary Retention, Acute, Male. Forms are Medication Reconciliation Form, Thank You Letter, Antibiotic Education, Prescription Opioid Use. Follow up: Private Physician; When: 2 - 3 days; Reason: Recheck today's complaints, Continuance of care, Re-evaluation by your physician. Follow up: Emergency Department; When: As needed; Reason: Worsening of condition. snw
[2018-04-24 11:24] VITALS: TEMP 98
[2018-04-24 11:25] VITALS: BP 135/72; O2SAT 100
== END 2018-04-24 11:14 | disposition home or self-care (01) ==
LOC: ER 08:53
DX: T83.098A Other mechanical complication of other urinary catheter, initial encounter (principal); Z88.0 Allergy status to penicillin; Y83.9 Surgical procedure, unspecified as the cause of abnormal reaction of the patient, or of later complication, without mention of misadventure at the time of the procedure
CPT/HCPCS: 99281

== ENCOUNTER 2022-04-29 08:42 | Inpatient (IN) | payer BC ==
[2022-04-29 09:55] LABS: Absolute Lymphocytes (CBC) 1.2 K/uL (0.7-4.9); Hematocrit 45.3 % (39.6-49.0); Lymphocytes % 10.7 % (15.3-44.8); MCV 94.4 fL (80-100)
--- NOTE | 2022-04-29 10:16 | RAD REPORT ---
EXAM DESCRIPTION: RAD - Chest Single View - 04/29/2022 10:07 am CLINICAL HISTORY: Cough Chest pain. COMPARISON: Chest Single View dated 04/16/2018 FINDINGS: Portable technique limits examination quality. The lungs are grossly clear. The heart is normal in size. No displaced fractures. IMPRESSION: No acute intrathoracic process suspected.
[2022-04-29] MEDS ORDERED: NA CHLORIDE 0.9% 1,000 ML ONE (10:30)
[2022-04-29 10:44] LABS: Protime INR 1.07
[2022-04-29 11:03] LABS: Albumin 3.1 g/dL (3.4-5.0); Bilirubin Direct 0.1 mg/dL (0-0.2); Bilirubin Total 0.3 mg/dL (0.2-1.0); C-Reactive Protein 14.9 mg/L (<3.00); Ferritin 264.8 ng/mL (26-388); Potassium 3.7 mmol/L (3.5-5.1); Protein, Total 6.8 g/dL (6.4-8.2)
[2022-04-29 11:05] LABS: Troponin High Sensitivity 491.2 pg/mL (<58.9)
--- NOTE | 2022-04-29 11:55 | EDPHYS ---
Physician Documentation [facility] Name: Jose Pennington Age: 62 yrs Sex: Male : 1960 Arrival Date: 04/29/2022 Time: 08:47 Bed 6 Private MD: ED Physician Eulogio Lu HPI: 04/29 10:17 This 62 yrs old Male presents to ER via Ambulatory with complaints of Breathing rn Difficulty, Covid+. 10:17 The patient has shortness of breath at rest, with light activity. rn 10:19 Onset: The symptoms/episode began/occurred 3 day(s) ago. Duration: The symptoms are rn intermittent. The patient's shortness of breath is aggravated by exertion, light activity, is alleviated by rest. Associated signs and symptoms: Pertinent positives: non-productive cough, fever, Pertinent negatives: hemoptysis. Severity of symptoms: At their worst the symptoms were moderate in the emergency department the symptoms are unchanged. The patient has not experienced similar symptoms in the past. The patient has not recently seen a physician. Pt reports feels sick for last few days, cough, congestion, subjective fever, has felt SOB since yesterday, especially with exertion and climbing stairs. No hemoptysis. No hx of DVT/PE. Reports had COVID before and didn't feel SOB.. Historical: - Allergies: 09:01 PENICILLINS; ap3 - Home Meds: 09:01 None [Active]; ap3 - PMHx: 09:01 Cholelithiasis; ap3 - Immunization history:: Client reports having NOT received the Covid vaccine. - Social history:: Smoking status: Patient denies any tobacco usage or history of. Patient uses alcohol, occasionally. - Family history:: not pertinent. - Hospitalizations: : No recent hospitalization is reported. ROS: 10:19 Constitutional: Negative for fever, chills, and weight loss, Cardiovascular: Negative rn for chest pain, palpitations, and edema, Respiratory: Negative for wheezing, and pleuritic chest pain, Abdomen/GI: Negative for abdominal pain, nausea, vomiting, diarrhea, and constipation, Back: Negative for injury and pain, MS/Extremity: Negative for injury and deformity, Skin: Negative for injury, rash, and discoloration, Neuro: Negative for headache, weakness, numbness, tingling, and seizure. Exam: :19 Constitutional: This is a well developed, well nourished patient who is awake, alert, rn and in no acute distress. Head/Face: Normocephalic, atraumatic. Eyes: Periorbital areas with no swelling, redness, or edema. ENT: No stridor Cardiovascular: Regular rate and rhythm. No pulse deficits. Respiratory: Mild tachypnea, clear bilateral breath sounds Abdomen/GI: Soft, non-tender Skin: Warm, dry MS/ Extremity: Pulses equal, no cyanosis. Neurovascular intact. Full, normal range of motion. Equal circumference. Neuro: Awake and alert, GCS 15 Vital Signs: 08:58 BP 137 / 99; Pulse 110; Resp 19; Temp 98.6; Pulse Ox 96% ; Weight 99.79 kg; Height 6 ap3 ft. 2 in. (187.96 cm); 09:00 BP 112 / 80; Pulse 100; Resp 17; Pulse Ox 96% ; jl7 09:45 BP 109 / 91; Pulse 93; Resp 18; Pulse Ox 97% ; jl7 10:30 BP 117 / 94; Pulse 90; Resp 15; Pulse Ox 97% ; jl7 08:58 Body Mass Index 28.25 (99.79 kg, 187.96 cm) ap3 MDM: 08:49 Patient medically screened. rn 11:53 Differential diagnosis: Myocardial Infarction pneumonia, Pneumothorax pulmonary edema, rn Pulmonary Embolism. Data reviewed: vital signs, nurses notes, lab test result(s), EKG, radiologic studies, plain films, and as a result, I will admit patient. Counseling: I had a detailed discussion with the patient and/or guardian regarding: the historical points, exam findings, and any diagnostic results supporting the discharge/admit diagnosis, lab results, radiology results, the need for further work-up and treatment in the hospital. Admission orders: after a detailed discussion of the patient's condition and case, the admit orders are written by me. ED course: Pt with elevated troponin, no ischemia on ECG, but frequent PVCs, will admit for further testing. . 12:05 ED course: Consulted with Dr. Murray, pt with large saddle PE, states lovenox for rn now, admit, no TPA at this time given stable vitals and not hypoxic.. 04/29 09:14 Order name: BMP; Complete Time: 11:41 rn 04/29 09:14 Order name: Blood Culture Adult (2) rn 04/29 09:14 Order name: C-Reactive Protein; Complete Time: : rn 04/29 09:14 Order name: CBC with Diff; Complete Time: 11:41 rn 04/29 09:14 Order name: D-Dimer; Complete Time: 11:41 rn 04/29 09:14 Order name: Ferritin; Complete Time: : rn 04/29 09:14 Order name: Flu; Complete Time: 11:41 rn 04/29 09:14 Order name: LFT's; Complete Time: 11: rn 04/29 09:14 Order name: Lactate; Complete Time: : rn 04/29 09:14 Order name: PT-INR; Complete Time: : rn 04/29 09:14 Order name: Procalcitonin; Complete Time: : rn 04/29 09:14 Order name: Ptt, Activated; Complete Time: : rn 04/29 09:14 Order name: Troponin HS; Complete Time: : rn 04/29 09:14 Order name: SARS-COV-2 RT PCR (Document "Date of Onset" if Symptomatic); Complete Time: rn :04/29 09:14 Order name: CXR XRAY; Complete Time: : rn 04/29 09:14 Order name: EKG; Complete Time: 09:15 rn 04/29 09:14 Order name: Cardiac monitoring; Complete Time: 09:24 rn 04/29 09:14 Order name: Droplet/Contact Precautions; Complete Time: 09:24 rn 04/29 09:14 Order name: EKG - Nurse/Tech; Complete Time: :41 rn 04/29 09:14 Order name: IV Start; Complete Time: :41 rn 04/29 09:14 Order name: Labs collected and sent; Complete Time: :41 rn 04/29 09:14 Order name: O2 Per Protocol; Complete Time: 09:24 rn 04/29 10:23 Order name: CT Chest For PE Angio rn 04/29 12:29 Order name: Regular EDMS 04/29 12:29 Order name: CBC with Automated Diff EDMS 04/29 12:29 Order name: CBC with Automated Diff EDMS 04/29 12:29 Order name: Comprehensive Metabolic Panel EDMS 04/29 12:29 Order name: Comprehensive Metabolic Panel [facility] 04/29 09:14 Order name: O2 Sat Monitoring; Complete Time: 09:24 rn Administered Medications: 10:25 Drug: NS 0.9% 1000 ml Route: IV; Rate: 1000 ml; Site: right forearm; jl7 11:30 Follow up: Response: No adverse reaction; IV Status: Completed infusion; IV Intake: jl7 1000ml 12:29 Drug: Lovenox (enoxaparin) 1 mg/kg Route: Sub-Q; Site: left lower abdomen; tp1 13:00 Follow up: Response: No adverse reaction jl7 Disposition Summary: 04/29/22 11:54 Hospitalization Ordered Hospitalization Status: Inpatient Admission rn Provider: Shahid Murray rn Location: Telemetry/MedSurg (Inpatient) rn Condition: Stable rn Problem: new rn Symptoms: have improved rn Bed/Room Type: Standard rn Room Assignment: 422(04/29/22 13:01) ss Diagnosis - SARS-associated coronavirus as the cause of diseases classified elsewhere rn - Saddle embolus of pulmonary artery without acute cor pulmonale rn Forms: - Medication Reconciliation Form rn - SBAR form rn Signatures: Dispatcher [employer] [facility] Eulogio Lu MD MD rn Smirch, Shelby RN RN Fe Scott RN RN [id number] Kristy iRzzo RN RN alma3 Alondra Chowdhury tp1 Corrections: (The following items were deleted from the chart) 09:01 09:01 Home Meds: Lamictal Oral; ap3 ap3 10:23 10:19 Constitutional: This is a well developed, well nourished patient who is awake, rn alert, and in no acute distress. Head/Face: Normocephalic, atraumatic. Eyes: Periorbital areas with no swelling, redness, or edema. Cardiovascular: Regular rate and rhythm. No pulse deficits. Respiratory: Mild tachypnea, clear bilateral breath sounds Abdomen/GI: Soft, non-tender Skin: Warm, dry MS/ Extremity: Pulses equal, no cyanosis. Neurovascular intact. Full, normal range of motion. Equal circumference. Neuro: Awake and alert, GCS 15 rn 12:33 11:[address] elevation SD rn rn 13:01 11:54 rn ss
--- NOTE | 2022-04-29 11:55 | ER ---
Nurse's Notes [facility] Name: Jose Pennington Age: 62 yrs Sex: Male : 1960 Arrival Date: 04/29/2022 Time: 08:47 Bed 6 Private MD: Diagnosis: SARS-associated coronavirus as the cause of diseases classified elsewhere;Saddle embolus of pulmonary artery without acute cor pulmonale Presentation: 04/29 08:58 Chief complaint: Patient states: he tested positive for COVID Wednesday April 27, 2022 and ap3 reports that he feels he has a hard time catching his breath upon ambulation. Patients 02 saturations were 95% on room air after ambulating to ER room. Coronavirus screen: Client reports previous positive COVID test result. Date of collection: April 27, 2022. Ebola Screen: No symptoms or risks identified at this time. Initial Sepsis Screen: Does the patient meet any 2 criteria? HR > 90 bpm. No. Patient's initial sepsis screen is negative. Does the patient have a suspected source of infection? No. Patient's initial sepsis screen is negative. Risk Assessment: Do you want to hurt yourself or someone else? Patient reports no desire to harm self or others. Onset of symptoms was April 27, 2022. 08:58 Method Of Arrival: Ambulatory ap3 08:58 Acuity: CLEO 3 ap3 Triage Assessment: 09:01 General: Appears well groomed, Behavior is calm, cooperative, appropriate for age. ap3 Pain: Denies pain. Neuro: Level of Consciousness is awake, alert, obeys commands, Oriented to person, place, time, situation, Gait is steady. Cardiovascular: Patient's skin is warm and dry. Respiratory: Reports shortness of breath on exertion Airway is patent Respiratory effort is even, unlabored, Respiratory pattern is regular, symmetrical, Onset: The symptoms/episode began/occurred gradually, the patient has mild shortness of breath. Historical: - Allergies: 09:01 PENICILLINS; ap3 - Home Meds: 09:01 None [Active]; ap3 - PMHx: 09:01 Cholelithiasis; ap3 - Immunization history:: Client reports having NOT received the Covid vaccine. - Social history:: Smoking status: Patient denies any tobacco usage or history of. Patient uses alcohol, occasionally. - Family history:: not pertinent. - Hospitalizations: : No recent hospitalization is reported. Screenin:02 Abuse screen: Denies threats or abuse. Nutritional screening: No deficits noted. ap3 Tuberculosis screening: No symptoms or risk factors identified. 10:00 Fall Risk IV access (20 points). Total Benitez Fall Scale indicates No Risk (0-24 pts). jl7 Assessment: 09:00 General: Appears in no apparent distress. uncomfortable, Behavior is calm, cooperative, jl7 appropriate for age. Pain: Denies pain. Neuro: Level of Consciousness is awake, alert, obeys commands, Oriented to person, place, time, situation. Cardiovascular: Rhythm is sinus tachycardia. Respiratory: Reports shortness of breath on exertion pain with respiration Airway is patent Respiratory effort is even, unlabored, Respiratory pattern is regular, symmetrical, Breath sounds are clear bilaterally. Derm: Skin is pink, warm \T\ dry. 10:25 Reassessment: Ambulated pt down ER thornton and back to room, HR increased to 120, Pulse ox jl7 remained 95-97%. ERD notified. 12:32 General: : Princess Pennington [phone]. tp1 Vital Signs: 08:58 BP 137 / 99; Pulse 110; Resp 19; Temp 98.6; Pulse Ox 96% ; Weight 99.79 kg; Height 6 ap3 ft. 2 in. (187.96 cm); 09:00 BP 112 / 80; Pulse 100; Resp 17; Pulse Ox 96% ; jl7 09:45 BP 109 / 91; Pulse 93; Resp 18; Pulse Ox 97% ; jl7 10:30 BP 117 / 94; Pulse 90; Resp 15; Pulse Ox 97% ; jl7 08:58 Body Mass Index 28.25 (99.79 kg, 187.96 cm) ap3 ED Course: 08:47 Patient arrived in ED. rg4 08:49 Eulogio Lu MD is Attending Physician. rn 08:55 Fe Forde RN is Primary Nurse. jl7 09:00 Patient has correct armband on for positive identification. Bed in low position. Call jl7 light in reach. Side rails up X 1. Client placed on continuous cardiac and pulse oximetry monitoring. NIBP monitoring applied. 09:01 Triage completed. ap3 09:02 Arm band placed on right wrist. ap3 09:29 COVID swab sent to lab. Flu and/or RSV swab sent to lab. jl7 09:30 Missed attempt(s): 20 gauge in right antecubital area. Bleeding controlled, band aid tp1 applied, catheter tip intact. 09:31 Initial lab(s) drawn, by me, sent to lab. Second set of blood cultures drawn by me. tp1 09:31 First set of blood cultures drawn by me. tp1 09:40 Inserted saline lock: 20 gauge in right forearm, using aseptic technique. Blood tp1 collected. 09:48 Door closed. Noise minimized. Warm blanket given. tp1 10:00 Pillow given. PO fluids given. jl7 10:09 CXR XRAY In Process Unspecified. EDMS 11:23 CT Chest For PE Angio In Process Unspecified. EDMS 11:54 Shahid Murray MD is Hospitalizing Provider. rn 13:50 No provider procedures requiring assistance completed. Patient admitted, IV remains in jl7 place. intact, No redness/swelling at site. Administered Medications: 10:25 Drug: NS 0.9% 1000 ml Route: IV; Rate: 1000 ml; Site: right forearm; jl7 11:30 Follow up: Response: No adverse reaction; IV Status: Completed infusion; IV Intake: jl7 1000ml 12:29 Drug: Lovenox (enoxaparin) 1 mg/kg Route: Sub-Q; Site: left lower abdomen; tp1 13:00 Follow up: Response: No adverse reaction jl7 Medication: 13:50 VIS not applicable for this client. jl7 Intake: 11:30 IV: 1000ml; Total: 1000ml. jl7 Outcome: 11:54 Decision to Hospitalize by Provider. rn 13:50 Admitted to Tele accompanied by tech, via stretcher, room 422, with chart, Report jl7 called to ANIL Montgomery 13:50 Condition: stable 13:50 Discharge instructions given to patient, Instructed on the need for admit, Demonstrated understanding of instructions. 13:51 Patient left the ED. jl7 Signatures: Dispatcher [employer] EDMS Eulogio Lu MD MD rn Garcia, Rubi rg4 Fe Forde RN RN jl7 Kristy Rizzo RN RN ap3 Alondra Chowdhury tp1 Corrections: (The following items were deleted from the chart) 09:01 09:01 Home Meds: Lamictal Oral; ap3 ap3 09:51 09:31 Initial lab(s) drawn, by me, sent to lab. First set of blood cultures drawn by tp1 me, Second set of blood cultures drawn by me, tp1
--- NOTE | 2022-04-29 12:14 | RAD REPORT ---
EXAM DESCRIPTION: CT - Chest For Pe Angio - 04/29/2022 11:21 am CLINICAL HISTORY: Chest pain. COVID +, rule out PE, dyspnea COMPARISON: No comparisons TECHNIQUE: CT angiogram of the pulmonary arteries was performed with MIP. All CT scans are performed using dose optimization technique as appropriate and may include automated exposure control or mA/KV adjustment according to patient size. FINDINGS: There is a large saddle pulmonary embolism seen. Large amount of clot burden is seen in krystal th main and distal bilateral pulmonary tree branches. Mild right heart burden is present. No acute aortic finding demonstrated. The lungs are clear. No significant pericardial or pleural fluid. No concerning bony finding. IMPRESSION: Extensive bilateral pulmonary thromboembolism is present including saddle embolism. Mild RV strain is probable. ER was notified.
[2022-04-29] MEDS: dexAMETHasone 4 MG TAB PO SCH ×2 (12:28→20:48)
--- NOTE | 2022-04-29 12:31 | P.HP ---
Certification for Inpatient With expected LOS: >2 Midnights Patient will require the following post-hospital care: None Practitioner: I am a practitioner with admitting privileges, knowledge of patient current condition, hospital course, and medical plan of care. Services: Services provided to patient in accordance with Admission requirements found in Title 42 Section 412.3 of the Code of Federal Regulations Patient History Date of Service: 04/29/22 Reason for admission: Active PE History of Present Illness: Patient is 62 years of age became sick over the weekend started having worsening dyspnea came into the emergency room was found to have bilateral pulmonary embolism other prior medical history tested positive for COVID has any fever or chills just the shortness of breath on exertion no prior history of thromboembolism no history of cardiopulmonary disorders Allergies Penicillins Allergy (Verified 10/16/12 10:02) childhood allergy Review of Systems 10-point ROS is otherwise unremarkable Physical Examination - Physical Exam General: Oriented x3 Neck: Supple Respiratory: Clear to auscultation bilaterally Cardiovascular: No edema, Regular rate/rhythm, Normal S1 S2 Gastrointestinal: Normal bowel sounds, Soft and benign Musculoskeletal: No clubbing, No swelling Integumentary: No rashes, No breakdown - Studies Laboratory Data (last 24 hrs) 04/29/22 : PT Cancelled, INR Cancelled, APTT Cancelled 04/29/22 10:20: PT 11.8, INR 1.07, APTT 27.4 04/29/22 10:20: Sodium 144, Potassium 3.7, BUN 24 H, Creatinine 1.10, Glucose 102, Total Bilirubin 0.3, AST 15, ALT 20, Alkaline Phosphatase 49 04/29/22 09:40: WBC 11.5 H, Hgb 15.1, Hct 45.3, Plt Count 185 Microbiology Data (last 24 hrs): 04/29/22 09:06 Nasopharnyx Influenza Type A Antigen Screen - Final 04/29/22 09:06 Nasopharnyx Influenza Type B Antigen Screen - Final Assessment and Plan - Problems (Diagnosis) (1) Pulmonary embolism Current Visit: Yes Status: Acute Plan: Patient is 62 years of age admitted with pulmonary embolism history of severe bilateral disease right now his blood pressure oxygenation is stable start patient on Lovenox he may need thrombolytic therapy depending upon the severity of his dyspnea chest x-ray is clear Qualifiers: Pulmonary embolism type: saddle Acute cor pulmonale presence: unspecified (2) SARS-CoV-2 positive Current Visit: Yes Status: Acute Plan: Patient tested positive for coronavirus we will start him on low-dose steroids for now - Advance Directives Does patient have a Living Will: No Does patient have a Durable POA for Healthcare: No
[2022-04-29] MEDS ORDERED: ENOXAPARIN 100 MG/ML SYR SQ ONE (12:33)
[2022-04-29 14:00] VITALS: BMI 28.0
[2022-04-29] MEDS: ALPRAZOLAM 0.5 MG TABLET PO PRN (20:48)
[2022-04-29] MEDS: ENOXAPARIN 100 MG/ML SYR SQ SCH (20:49)
[2022-04-30 03:47] LABS: Absolute Lymphocytes (CBC) 0.5 K/uL (0.7-4.9); Hematocrit 42.4 % (39.6-49.0); Lymphocytes % 4.8 % (15.3-44.8); MCV 94.9 fL (80-100); MPV 7.7 fL (7.6-11.3); RBC Red Blood Cell Count 4.47 M/uL (4.33-5.43)
[2022-04-30 04:01] LABS: Albumin 2.8 g/dL (3.4-5.0); Bilirubin Total 0.4 mg/dL (0.2-1.0); Protein, Total 6.3 g/dL (6.4-8.2)
[2022-04-30 04:32] LABS: Blood Morphology Comment NOT SEEN (NOT SEEN); Platelet Estimate ADEQ
--- NOTE | 2022-04-30 08:23 | EKG ---
Test Date: 2022-04-29 Test Time: 09:39:22 Field Adjuster: ZEYNEP MEASUREMENT RESULTS: Intervals: Rate: 97 NM: 154 QRSD: 136 QT: 386 QTc: 490 [place]: P: 52 NM: 154 QRS: 52 T: 13 INTERPRETIVE STATEMENTS: Sinus rhythm with occasional premature ventricular complexes Right bundle branch block Abnormal ECG No previous ECG available for comparison Electronically Signed On 04-30-22 08:18:37 CDT by Elías Alvarado
[2022-04-30] MEDS: dexAMETHasone 4 MG TAB PO SCH ×2 (09:43→22:01)
[2022-04-30] MEDS: ENOXAPARIN 100 MG/ML SYR SQ SCH ×2 (09:43→22:01)
--- NOTE | 2022-04-30 12:23 | P.PN ---
Subjective Date of Service: 04/30/22 Chief Complaint: Active PE Subjective: Improving (Patient is feeling much better today shortness of breath is also improved) Review of Systems Unremarkable Physical Examination - Vital Signs Temperature: 97.9 F Blood Pressure: 131/82 Pulse: 88 Respirations: 18 Pulse Ox (%): 95 - Physical Exam General: Alert, In no apparent distress, Oriented x3 Respiratory: Clear to auscultation bilaterally Cardiovascular: No edema - Studies Microbiology Data (last 24 hrs): 04/29/22 09:06 Nasopharnyx Influenza Type A Antigen Screen - Final 04/29/22 09:06 Nasopharnyx Influenza Type B Antigen Screen - Final Assessment And Plan - Current Problems (Diagnosis) (1) Pulmonary embolism Current Visit: Yes Status: Acute Plan: Patient is 62 years of age admitted with pulmonary embolism he is doing much better did not experience any episodes of desaturation or hypotension is not a candidate for thrombolytic therapy awaiting echo plan to also ambulate the patient contemplate discharge tomorrow on Eliquis or Xarelto for coagulation for minimum of 3 months precipitated by a coronavirus infection Qualifiers: Pulmonary embolism type: saddle Acute cor pulmonale presence: unspecified (2) SARS-CoV-2 positive Current Visit: Yes Status: Acute Plan: P he is feeling a lot better
[2022-04-30 16:35] VITALS: O2SAT 96
--- NOTE | 2022-04-30 19:09 | P.PN ---
Subjective Date of Service: 04/30/22 Chief Complaint: Active PE Patient has no complaint. He states his shortness of breath have resolved. He denies any chest pain. Physical Examination - Vital Signs Temperature: 99.5 F Blood Pressure: 145/89 Pulse: 85 Respirations: 96 Pulse Ox (%): 96 - Physical Exam General: Alert, In no apparent distress, Oriented x3 HEENT: Mucous membr. moist/pink Neck: Supple, JVD not distended Respiratory: Clear to auscultation bilaterally, Normal air movement Cardiovascular: No edema, Regular rate/rhythm, Normal S1 S2 Gastrointestinal: Soft and benign, Non-distended, No tenderness Musculoskeletal: No swelling, No tenderness Integumentary: No rashes, No erythema Neurological: Normal speech, Normal strength at 5/5 x4 extr Assessment And Plan - Current Problems (Diagnosis) (1) Pulmonary embolism Current Visit: Yes Status: Acute Qualifiers: Pulmonary embolism type: saddle Acute cor pulmonale presence: unspecified (2) SARS-CoV-2 positive Current Visit: Yes Status: Acute - Plan Patient has no lung infiltrate and appears asymptomatic from the COVID-19 infection. He is not hypoxic at rest or with ambulation. Blood pressure has been stable. Echocardiogram is pending. Continue full dose Lovenox. Will transition to Eliquis-DVT/PE regimen on discharge. Awaiting echocardiogram result. Pulmonary input appreciated.
[2022-04-30] MEDS: ALPRAZOLAM 0.5 MG TABLET PO PRN (22:11)
[2022-05-01 03:53] LABS: Absolute Lymphocytes (CBC) 0.5 K/uL (0.7-4.9); Hematocrit 40.2 % (39.6-49.0); Lymphocytes % 6.9 % (15.3-44.8); MCV 95.1 fL (80-100); MPV 7.4 fL (7.6-11.3); RBC Red Blood Cell Count 4.22 M/uL (4.33-5.43)
[2022-05-01 03:56] LABS: Potassium 4.1 mmol/L (3.5-5.1)
[2022-05-01 05:09] VITALS: TEMP 98.2
--- NOTE | 2022-05-01 07:53 | P.DS ---
Admission Date: 04/29/22 Discharge Date: 05/01/22 Disposition: ROUTINE DISCHARGE Discharge Condition: FAIR Reason for Admission: Active PE - Problems (1) Pulmonary embolism Status: Acute Qualifiers: Pulmonary embolism type: saddle Acute cor pulmonale presence: unspecified (2) SARS-CoV-2 positive Status: Acute Brief History of Present Illness: Patient is 62 years of age became sick and started having worsening dyspnea. He came into the emergency room and was found to have bilateral pulmonary embolism by CTA thorax. He also tested positive for COVID. He denied any fever or chills. No prior history of thromboembolism, or cardiopulmonary disorders. CTA thorax demonstrated saddle pulmonary embolus. Patient was hospitalized for further management. Hospital Course: Patient admitted to the medical floor and is treated with full dose Lovenox. He has no lung infiltrate and appears asymptomatic from the COVID-19 infection. He was not hypoxic at rest or with ambulation. Blood pressure was stable. Patient shortness of breath improved the next day a fter admission. Echocardiogram from now resulted demonstrated mild pulm hypertension, no right heart strain. Patient became asymptomatic with stable vitals. Full dose Lovenox transition to Eliquis-DVT/PE regimen and discharged. Pulmonary assisted with management. Vital Signs/Physical Exam: Temp Pulse Resp BP Pulse Ox 98.2 F 72 18 123/86 98 05/01/22 04:00 05/01/22 04:00 05/01/22 04:00 05/01/22 04:00 05/01/22 04:00 HEENT: Mucous membr. moist/pink, Sclerae nonicteric Neck: Supple, JVD not distended Respiratory: Clear to auscultation bilaterally, Normal air movement Cardiovascular: No edema, Regular rate/rhythm, Normal S1 S2 Gastrointestinal: Normal bowel sounds, Soft and benign, Non-distended, No tenderness Musculoskeletal: No swelling, No tenderness Integumentary: No rashes, No erythema, No cyanosis Neurological: Normal speech, Normal strength at 5/5 x4 extr Laboratory Data at Discharge: WBC 7.7 K/uL (4.3-10.9) D 05/01/22 03:00 Hgb 13.7 g/dL (13.6-17.9) 05/01/22 03:00 Hct 40.2 % (39.6-49.0) 05/01/22 03:00 Plt Count 163 K/uL (152-406) 05/01/22 03:00 PT Cancelled 04/29/22 Unknown INR Cancelled 04/29/22 Unknown APTT Cancelled 04/29/22 Unknown Sodium 142 mmol/L (136-145) 05/01/22 03:00 Potassium 4.1 mmol/L (3.5-5.1) 05/01/22 03:00 BUN 19 mg/dL (7-18) H 05/01/22 03:00 Creatinine 0.87 mg/dL (0.55-1.3) 05/01/22 03:00 Glucose 143 mg/dL (74-106) H 05/01/22 03:00 Total Bilirubin 0.4 mg/dL (0.2-1.0) 04/30/22 03:05 AST 13 U/L (15-37) L 04/30/22 03:05 ALT 21 U/L (12-78) 04/30/22 03:05 Alkaline Phosphatase 46 U/L (45-117) 04/30/22 03:05 Home Medications: Apixaban [Eliquis] 5 mg PO BID #74 tab.ds.pk 05/01/22 New Medications: Apixaban [Eliquis] 5 mg PO BID #74 tab.ds.pk Physician Discharge Instructions: Take 10 mg twice a day for 7 days then 5 mg twice a day Patient to avoid any heavy lifting strenuous work for the next week/can resume low levels of physical activity Diet: AHA Activity: Ad afia Followup: Shahid Murray MD [ACTIVE - CAN ADMIT] - NONE,NONE [Primary Care Provider] - Time spent managing pt's care (in minutes): 35
[2022-05-01 07:54] VITALS: BP 135/88
--- NOTE | 2022-05-01 08:09 | ECHO ---
HEIGHT: 6 ft 2 in WEIGHT: 219 lb 0 oz DATE OF STUDY: 04/30/[address]: Shahid Murray MD 2-DIMENSIONAL: YES M.MODE: YES DOPPLER: YES COLOR FLOW: YES TDS: NO PORTABLE: YES DEFINITY: NO BUBBLE STUDY: NO DIAGNOSIS: BILATERAL PULMONARY EMBOLISM CARDIAC HISTORY: CATHERIZATION: SURGERY: PROSTHETIC VALVE: PACEMAKER: MEASUREMENTS (cm) DIASTOLIC (NORMALS) SYSTOLIC (NORMALS) IVSd 1.0 (0.6-1.2) LA Diam 3.2 (1.9-4.0) LVEF 54% LVIDd 4.4 (3.5-5.7) LVIDs 3.1 (2.0-3.5) %FS 28% LVPWd 1.0 (0.6-1.2) Ao Diam 3.8 (2.0-3.7) 2 DIMENSIONAL ASSESSMENT: RIGHT ATRIUM: NORMAL LEFT ATRIUM: NORMAL RIGHT VENTRICLE: NORMAL LEFT VENTRICLE: NORMAL TRICUSPID VALVE: NORMAL MITRAL VALVE: NORMAL PULMONIC VALVE: NORMAL AORTIC VALVE: NORMAL PERICARDIAL EFFUSION: NONE AORTIC ROOT: NORMAL LEFT VENTRICULAR WALL MOTION: NORMAL DOPPLER/COLOR FLOW: MILD AORTIC AND TRICUSPID REGURGITATION. COMMENTS: MILD AORTIC AND TRICUSPID REGURGITATION. MILD PULMONARY HYPERTENSION. RIGHT VENTRICULAR SYSTOLIC PRESSURE 40 mmHg. NORMAL LEFT VENTRICULAR SIZE AND FUNCTION. NO MITRAL VALVE PROLAPSE. NO EFFUSION. TECHNOLOGIST: Lyudmila CERVANTES
--- NOTE | 2022-05-01 08:36 | P.PN ---
Subjective Date of Service: 05/01/22 Chief Complaint: Active PE Subjective: Improving (Patient is doing much better denies any shortness of breath he is able to ambulate without dyspnea or hypoxemia signs have been all stable) Review of Systems Unremarkable Physical Examination - Vital Signs Temperature: 98.2 F Blood Pressure: 135/88 Pulse: 86 Respirations: 16 Pulse Ox (%): 96 - Physical Exam General: Alert, Oriented x3 Respiratory: Clear to auscultation bilaterally Cardiovascular: No edema, Normal S1 S2 Assessment And Plan - Current Problems (Diagnosis) (1) Pulmonary embolism Current Visit: Yes Status: Acute Plan: Patient admitted with the bilateral pulmonary embolism he is doing well hemodynamically stable does not qualify for lytic therapy does not meet the criteria his echocardiogram does not show right ventricular dilatation he has mild pulmonary hypertension stable for discharge home on Eliquis for at least 3 to 6 months will follow up as an outpatient advised the patient to limit his activity for the next week gauging light duty work Qualifiers: Pulmonary embolism type: saddle Acute cor pulmonale presence: unspecified (2) SARS-CoV-2 positive Current Visit: Yes Status: Acute Plan: P he is feeling a lot better
[2022-05-01] MEDS ORDERED: APIXABAN 5 MG TABLET PO SCH (09:00)
[2022-05-01] MEDS: dexAMETHasone 4 MG TAB PO SCH (09:48)
--- OUTSIDE RECORDS SUMMARY | 2022-05-08 23:16 | XMS REPORT | Continuity of Care Document ---
:1960 Author Organization [facility] t Address [address] [place] [address] Care Team Providers Name Role Phone GABBY Attending Clinician Unavailable PARISH Attending Clinician Unavailable ABISAI Attending Clinician Unavailable LENNOX Attending Clinician Unavailable Problems Condition Condition Condition Status Onset Resolution Last Treating Co mments Source Name Details Category Date Date Treatment Clinician Date Fracture Fracture Problem Active [facility] of greater of greater Ph ysici trochanter trochanter an s Fracture Fracture Problem Active [facility] of left of left Physici inferior inferior ans pubic pubic ramus with ramus with routine routine healing healing Sacral Sacral Problem Active [facility] fracture fracture Physic i ans Allergies, Adverse Reactions, Alerts This patient has no known allergies or adverse reactions. Medications Ordered Filled Start Stop Current Ordering Indication Dosage Frequency Signature Comments Components Source Medication Medication Date Date Medication? Clinician (SIG) Name Name Gabapentin Gabapentin Yes AUBREE TAKE ONE UT 300 MG Oral 300 MG Oral 7-19 [facility] CAPSULE [facility] Capsule Capsule 00:00: M.D. THREE ans 00 TIMES A DAY WITH AN EXTRA ONE AT NIGHT Acetaminoph Acetaminoph Yes AUBREE TAKE 1 UT en-Codeine en-Codeine 7-12 [facility] TABLET [facility] #3 300-30 #3 300-30 00:00: M.D. EVERY 4 TO ans MG Oral MG Oral 00 6 HOURS Tablet Tablet NEEDED FOR PAIN. traMADol traMADol Yes AUBREE 1 TAKE 1 UT HCl - 50 MG HCl - 50 MG 7-12 [facility] TABLET [facility] Oral Tablet Oral Tablet 00:00: M.D. EVERY 6 ans 00 HOURS NEEDED FOR PAIN. Procedures Procedure Date / Time Performed Performing Clinician Sourc e [U] XRAY PELVIS MIN 3 VWS 2018-11-04 00:00:00 [facility] [id number] [U] XRAY HIP UNILATERAL MIN 2018-11-04 00:00:00 [facility] 2 VWS LEFT [id number] [U] XRAY PELVIS MIN 3 VWS 2018-07-10 00:00:00 [facility] [id number] [U] XRAY HIP UNILATERAL MIN 2018-07-10 00:00:00 [facility] 2 VWS LEFT [id number] [U] XRAY PELVIS MIN 3 VWS 2018-05-15 00:00:00 [facility] [id number] [U] XRAY HIP UNILATERAL MIN 2018-05-15 00:00:00 [facility] 2 VWS LEFT [id number] [U] XRAY PELVIS MIN 3 VWS 2018-05-07 00:00:00 [facility] [id number] [U] XRAY HIP UNILATERAL MIN 2018-05-07 00:00:00 [facility] 2 VWS LEFT [id number] [U] XRAY HIP UNILATERAL MIN 2018-04-27 00:00:00 [facility] 2 VWS LEFT [id number] [U] XRAY PELVIS MIN 3 VWS 2018-04-27 00:00:00 [facility] [id number] Encounters Start End Encounter Admission Attending Care Care Encounter Source Date/Time Date/Time Type Type Clinicians Facility Department ID 2020-09-11 2020-09-11 Outpatient GABBY, [facility] [id number] [place] 00:00:00 00:00:[address] 2020-09-06 2020-09-06 Outpatient GABBY, [facility] [id number] [place] 00:00:00 00:00:[address] 2020-08-17 2020-08-17 Outpatient GABBY, [facility] [id number] [place] 00:00:00 00:00:[address] 2020-07-03 2020-07-03 Outpatient GABBY, [facility] [id number] [place] 00:00:00 00:00:[address] 2020-07-03 2020-07-03 Outpatient GABBY, [facility] [id number] [place] 00:00:00 00:00:[address] 2018-11-12 2018-11-12 [facility] [id number] [place] 10:45:00 10:45:00 tAUBREE SHAH, Ph Nacho Huffman M.D. 2018-10-15 2018-10-15 AppointBRIAN Cornejo [facility] [id number] [place] 08:15:00 08:15:00 t; AUBREE LUGO, Ph Nacho Huffman M.D. 2018-07-16 2018-07-16 [id number] [place] 10:00:00 10:00:00 t; Andrei COSTELLO PA-C ans LEIDY COSTELLO 2018-05-28 2018-05-28 [facility] LENNOX, [facility] [id number] [place] 08:15:00 08:15:00 t; VAHID VALVERDE Physic i LENNOXharry NP 2018-05-14 2018-05-14 [facility] [id number] [place] 09:45:00 09:45:00 t; AUBREE LUGO, Ph Nacho Huffman M.D. 2018-04-30 2018-04-30 [facility] [id number] [place] 08:45:00 08:45:00 t; AUBREE LUGO, Nacho Manjarrez M.D. Results Test Description Test Time Test Comments Results Result [facility] e Comments [U] XRAY HIP 2018-05-14 Images [facility] UNILATERAL MIN 2 09:14:00 acquired, not VWS LEFT [id number] reported on this accession number. [U] XRAY PELVIS 2018-05-14 [facility] MIN 3 VWS [id number] 09:14:00 acquired, not reported on this accession number. [U] XRAY HIP 2018-04-30 [facility] UNILATERAL MIN 2 07:52:00 acquired, not VWS LEFT [id number] reported on this accession number. [U] XRAY PELVIS 2018-04-30 Images [facility] MIN 3 VWS [id number] 07:52:00 acquired, not reported on this accession number.
== END 2022-05-01 10:16 | disposition home or self-care (01) | DRG 175 ==
LOC: ER 08:42 → ERHOLD 12:25 → 4TH 13:35
PROVIDERS: ADMIT Internal Medicine Sleep Medicine; ATTEND Internal Medicine Sleep Medicine
DX: I26.92 Saddle embolus of pulmonary artery without acute cor pulmonale (principal); U07.1 COVID-19; I27.20 Pulmonary hypertension, unspecified; Z88.0 Allergy status to penicillin
CPT/HCPCS: 36415; 71045; 71275; 80048; 80053; 80076; 82728; 83605; 84145; 84484; 85025; 85379; 85610; 85730; 86140; 87040; 87804; 93005; 93306; 94760; 96360; 96372; 99285; J1650; J7030; J8540; Q9967; U0003